=== PATIENT | female | born 1935 | race Caucasian/White ===

== ENCOUNTER 2017-02-27 12:43 | Emergency (ER) | payer MEDICARE ==
[~2017-02-27] VITALS: Ht 165.1 cm; Wt 75.6 kg
[~2017-02-27 12:43] MED LIST: ACTO35TA PO; ASPI81TA21 PO; GLYB2.5T3 PO; LEVO.025 PO; METH500T3 PO; METO50TA PO; NIFE90TA37 PO; PREG25 PO; PRIN20TA2 PO; ROSU20 PO
[2017-02-27 12:52] VITALS: BP 158/74; PULSE 64; RESP 16; TEMP 99.1; O2SAT 97
[2017-02-27] MEDS ORDERED: DOXY1CAP91 (13:08)
[2017-02-27] MEDS ORDERED: BENZ1CAP51 PO (13:08)
[2017-02-27] MEDS ORDERED: GLYB5TAB3 PO (13:09)
[2017-02-27] MEDS ORDERED: ASPI-516 CHEW (13:09)
[2017-02-27] MEDS ORDERED: ROSU1TAB6 PO (13:10)
[2017-02-27] MEDS ORDERED: LEVO25TA4 PO (13:11)
[2017-02-27] MEDS ORDERED: METO50TA PO (13:11)
[2017-02-27] MEDS ORDERED: LISI10TA3 PO (13:12)
[2017-02-27 13:14] VITALS: BP 158/74; PULSE 64; RESP 16; TEMP 99.1; O2SAT 99
--- NOTE | 2017-02-27 13:27 | PD ---
HPI Chief Complaint: OD/ Ingestion Time Seen by Provider: 13:11 Travel History International Travel<30 days: Yes ([place]) Contact w/Intl Traveler<30days: Yes Name of Country Traveled to: [place] Traveled to known affect area: No History of Present Illness HPI This patient took her regular medications at 9 AM this morning. Then she accidentally took a second dose of the medications because she got confused and thought it was the following day. There is no intent to harm or intentional overdose. She feels fine at this point. She took a second dose of several antihypertensives and a second glyburide dose. She did not eat any lunch today. Accu-Chek 89. Were getting her regular meal tray now. Blood pressure 168/80. Symptoms severity is mild. Duration 2 hours. No alleviating factors. No exacerbating factors. PFSH Past Medical History High Cholesterol: Yes Diabetes: Yes Diminished Hearing: No Hypertension: Yes Immunizations Current: No Thyroid Disease: Yes PNEUMOCCOCAL Vaccine (Year): 2008 Menopausal: No Past Surgical History Hysterectomy: Yes Social History Alcohol Use: Yes (SOCIAL) Tobacco Use: No Substance Use: No Allergies-Medications (Allergen,Severity, Reaction): Coded Allergies: No Known Allergies (Verified , 02/27/17) Reported Meds & Prescriptions Reported Meds & Active Scripts Active Reported Lisinopril 10 Mg Tab 10 Mg PO DAILY Metoprolol Tartrate 50 Mg Tab 50 Mg PO DAILY Levothyroxine (Levothyroxine Sodium) 25 Mcg Tab 25 Mcg PO DAILY Rosuvastatin (Rosuvastatin Calcium) 10 Mg Tab 10 Mg PO HS Glyburide 5 Mg Tab 5 Mg PO DAILY Take with meals at the same time each day Aspirin 81 Mg Chew 81 Mg CHEW DAILY Doxycycline (Doxycycline (Monohydrate)) 100 Mg Cap Benzonatate 200 Mg Cap 200 Mg PO TID PRN Review of Systems General / Constitutional: No: Fever Eyes: No: Visual changes HENT: No: Headaches Cardiovascular: No: Chest Pain or Discomfort Respiratory: No: Shortness of Breath Gastrointestinal: No: Abdominal Pain Genitourinary: No: Dysuria Musculoskeletal: No: Pain Skin: No Rash Neurologic: No: Weakness Psychiatric: No: Depression Endocrine: No: Polydipsia Hematologic/Lymphatic: No: Easy Bruising Physical Exam Narrative GENERAL: Well-nourished, well-developed patient in no apparent distress. SKIN: Focused skin assessment reveals no rash and nodules. Skin is Warm and dry. HEAD: Atraumatic. Normocephalic. EYES: Pupils equal and round. No scleral icterus. No injection or drainage. ENT: No nasal bleeding or discharge. Mucous membranes pink and moist. NECK: Trachea midline. No JVD. CARDIOVASCULAR: Regular rate and rhythm. No murmur appreciated. RESPIRATORY: No accessory muscle use. Clear to auscultation. Breath sounds equal bilaterally. GASTROINTESTINAL: Abdomen soft, non-tender, nondistended. Hepatic and splenic margins not palpable. MUSCULOSKELETAL: No obvious deformities. No clubbing. No cyanosis. No edema. NEUROLOGICAL: Awake and alert. No obvious cranial nerve deficits. Motor grossly within normal limits. Normal speech. PSYCHIATRIC: Appropriate mood and affect; insight and judgment normal. Data Data Last Documented VS Vital Signs Date Time Temp Pulse Resp B/P (MAP) Pulse Ox O2 Delivery O2 Flow Rate FiO2 02/27/17 15:26 77 16 119/59 (79) 98 Room Air 02/27/17 13:14 99.1 [facility] Medical Decision Making Medical Screen Exam Complete: Yes Emergency Medical Condition: Yes Medical Record Reviewed: Yes Differential Diagnosis Unintentional overdose, overmedication, iatrogenic hypotension Narrative Course I have reviewed the patient's electronic medical record. Been 2 hours since she accidentally took a second dose of her medications. She is asymptomatic. I'm going to watch her for a while and reassess her sugar and blood pressure as needed Giving her regular meal tray now I observed her for 3 hours At the end of 3 hours she is asymptomatic. Accu-Chek is 208 Blood pressure 120 systolic I advised her to check her blood pressure and sugar periodically and a close attention to her medications and went to dose them She is stable for outpatient follow-up. Diagnosis Primary Impression: Accidental overdose Qualified Codes: T50.901A - Poisoning by unspecified drugs, medicaments and biological substances, accidental (unintentional), initial encounter Additional Instructions: Check and record blood pressure twice daily Check sugar frequently The patient was advised to follow up with their physician and return if they worsen. Med/Other Pt SpecificInfo: Other Disposition: 01 DISCHARGE HOME Condition: Stable Mike Morel MD Feb 27, 2017 13:27
[2017-02-27 14:45] VITALS: BP 130/66; PULSE 80; RESP 16; O2SAT 98
[2017-02-27 15:26] VITALS: BP 119/59; PULSE 77; RESP 16; O2SAT 98
== END 2017-02-27 15:57 | disposition home or self-care (01) ==
LOC: PHED 12:43
DX: T50.991A Poisoning by other drugs, medicaments and biological substances, accidental (unintentional), initial encounter (principal); E11.9 Type 2 diabetes mellitus without complications; I10 Essential (primary) hypertension; E07.9 Disorder of thyroid, unspecified; E78.00 Pure hypercholesterolemia, unspecified; Z79.84 Long term (current) use of oral hypoglycemic drugs
CPT/HCPCS: 99282